=== PATIENT | female | born 1970 | race Caucasian/White ===

== ENCOUNTER 2017-01-11 05:06 | Emergency (ER) | payer OTHER ==
[2017-01-11 05:25] VITALS: BP 136/81; PULSE 73; TEMP 97.6; BMI 21.9
--- NOTE | 2017-01-11 06:01 | PDOC ---
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 As per the patient, she had finished drawing blood on a patient when she removed the needle, however the needle wasnt fully retracted into the vacutainer and it pricked her finger through her glove. She denies noting any open puncture wound or active bleeding. She reports that the HIV blood screen was obtained while she was drawing the patients blood and is currently in the lab. She denies any recent illness, fever, chills, nausea, vomiting, diarrhea, cough, shortness of breath or chest pain. <Ev Mccloud - Last Filed: 01/11/17 06:04> <Angel Su - Last Filed: 01/11/17 06:49> - General Chief Complaint: Blood/Body Fluid Exposure SJR Stated Complaint: NEEDLE STICK Past History <Ev Mccloud - Last Filed: 01/11/17 06:04> - Social History Smoking Status: Never smoked <Angel Su - Last Filed: 01/11/17 06:49> - Past Medical History Allergies/Adverse Reactions: Allergies Sulfa (Sulfonamide Antibiotics) Allergy (Unknown, Verified 01/11/17 05:28) Home Medications: Ambulatory Orders NK [No Known Home Medication] 01/11/17 Review of Systems - Review of Systems Able to Perform ROS?: Yes Comments:: 01/11/17 06:04 GENERAL/CONSTITUTIONAL: No fever or chills. No weakness. HEAD, EYES, EARS, NOSE AND THROAT: No change in vision. No ear pain or discharge. No sore throat. CARDIOVASCULAR: No chest pain or shortness of breath. RESPIRATORY: No cough, wheezing, or hemoptysis. GASTROINTESTINAL: No nausea, vomiting, diarrhea or constipation. GENITOURINARY: No dysuria, frequency, or change in urination. MUSCULOSKELETAL: No joint or muscle swelling or pain. No neck or back pain. SKIN: No rash NEUROLOGIC: No headache, vertigo, loss of consciousness, or change in strength/ sensation. ENDOCRINE: No increased thirst. No abnormal weight change. HEMATOLOGIC/LYMPHATIC: No anemia, easy bleeding, or history of blood clots. ALLERGIC/IMMUNOLOGIC: No hives or skin allergy. All Other Systems: Reviewed and Negative <Ev Mccloud - Last Filed: 01/11/17 06:04> *Physical Exam - Vital Signs Last Vital Signs Temp Pulse Resp BP Pulse Ox 97.6 F 73 18 136/81 99 01/11/17 05:24 01/11/17 05:24 01/11/17 05:24 01/11/17 05:24 01/11/17 05:24 - Physical Exam Comments: 01/11/17 06:05 GENERAL: Awake, alert, and fully oriented, in no acute distress HEAD: No signs of trauma EYES: PERRLA, EOMI, sclera anicteric, conjunctiva clear ENT: Auricles normal inspection, hearing grossly normal, nares patent, oropharynx clear without exudates. Moist mucosa NECK: Normal ROM, supple, no lymphadenopathy, JVD, or masses LUNGS: Breath sounds equal, clear to auscultation bilaterally. No wheezes, and no crackles HEART: Regular rate and rhythm, normal S1 and S2, no murmurs, rubs or gallops ABDOMEN: Soft, nontender, normoactive bowel sounds. No guarding, no rebound. No masses EXTREMITIES: Normal range of motion, no edema. No clubbing or cyanosis. No cords , erythema, or tenderness NEUROLOGICAL: Cranial nerves II through XII grossly intact. Normal speech, normal gait SKIN: Warm, Dry, normal turgor, no rashes or lesions noted. <Ev Mccloud - Last Filed: 01/11/17 06:04> - Vital Signs Last Vital Signs Temp Pulse Resp BP Pulse Ox 97.6 F 73 18 136/81 99 01/11/17 05:24 01/11/17 05:24 01/11/17 05:24 01/11/17 05:24 01/11/17 05:24 <Angel Su - Last Filed: 01/11/17 06:49> Medical Decision Making - Medical Decision Making 01/11/17 05:57 This is a 46yo F with possible needle stick while working and picking up a needle. She had tested the patient's blood and we are awaiting result. There is no evidence objectively of any puncture, excoriation or laceration. The risk of transmission of communicable disease is very low. We will discuss the case with the nursing supervisor taping and have the patient follow up with employee health services. 01/11/17 06:48 Plan as above; source patient is negative; she will have surveillance via [facility]. She is discharged at this time. <Angel Su - Last Filed: 01/11/17 06:49> *DC/Admit/Observation/Transfer - Attestations Scribe Attestion: 01/11/17 06:05 Documentation prepared by Ev Mccloud, acting as medical practice assistant for Angel Su MD. <Ev Mccloud - Last Filed: 01/11/17 06:04> - Discharge Dispostion Admit: No Decision to Admit order Date/Time: 01/11/17 05:59 <Angel Su - Last Filed: 01/11/17 06:49> Diagnosis at time of Disposition: Needle stick injury Qualifiers: Encounter type: initial encounter Qualified Code(s): W27.3XXA - Contact with needle (sewing), initial encounter - Discharge Dispostion Condition at time of disposition: Stable - Referrals Referrals: Tanisha Leon [Primary Care Provider] - - Patient Instructions Additional Instructions: The exposure you experienced is very LOW risk for transmission of communicable disease. Please follow up with [facility] Thursday morning. If there is any change otherwise in your symptoms, please return immediately to the ED. - Post Discharge Activity Work/School Note: Back to Work
[2017-01-11 06:56] LABS: BASOPHIL 0.6 % (0-2.0); EOSINOPHIL 2.4 % (0-4.5); MCH 31.7 pg (25.7-33.7); MCHC 34.2 g/dl (32.0-36.0); MEAN CELL VOLUME 92.7 fl (80-96); MEAN PLT VOLUME 7.5 fl (7.5-11.1); NEUTROPHILS 54.3 % (42.8-82.8); PLATELET COUNT 247 K/MM3 (134-434); RDW 13.5 % (11.6-15.6); WHITE BLOOD COUNT 9.3 K/mm3 (4.0-10.0)
[2017-01-11 07:22] LABS: ALBUMIN 3.7 g/dl (3.4-5.0); ANION GAP 9 (8-16); BILIRUBIN,TOTAL 0.2 mg/dL (0.2-1.0); CALCIUM 8.7 mg/dL (8.5-10.1); CHOLESTEROL 246 mg/dL (50-200); CO2 25 mmol/L (21-32); CREATININE 0.6 mg/dL (0.55-1.02); GLUCOSE,RANDOM 84 mg/dL (74-106); LDH 180 U/L (84-246); PHOSPHOROUS 3.5 mg/dL (2.5-4.9); SGOT/AST 19 U/L (15-37); SGPT/ALT 32 U/L (12-78); TOT PROT 7.3 g/dl (6.4-8.2)
[2017-01-11 07:25] LABS: ALK PHOS 86 U/L (45-117); URIC ACID 2.5 mg/dL (2.6-7.2)
[2017-01-11 07:32] LABS: HIV 1 & 2 AB NEGATIVE; HIV 1 AGp24 NEGATIVE
[2017-01-13 06:07] LABS: HEP B SURFACE AB Reactive (.)
== END 2017-01-11 06:49 | disposition home or self-care (01) ==
LOC: JER 05:06
DX: Z77.21 Contact with and (suspected) exposure to potentially hazardous body fluids (principal); W46.1XXA Contact with contaminated hypodermic needle, initial encounter; Y93.89 Activity, other specified; Y92.239 Unspecified place in hospital as the place of occurrence of the external cause; Y99.0 Civilian activity done for income or pay
CPT/HCPCS: 36415; 80053; 82465; 82977; 83615; 84100; 84478; 84550; 85025; 86704; 86706; 87340; 87389; 99282-25